=== PATIENT | female | born 1960 | race Caucasian/White ===

== ENCOUNTER 2017-07-10 22:30 | Emergency (ER) | payer BC, OTHER ==
[2017-07-10 22:45] VITALS: BP 130/79; PULSE 93; TEMP 98.2; BMI 33.6
--- NOTE | 2017-07-11 01:37 | PDOC ---
History of Present Illness - General Exam Limitations: No Limitations - History of Present Illness Initial Comments: 07/11/17 02:00 The patient is a 57 year old female, with a significant past medical history of DM, chronic back pain, hypothyroidism, scoliosis (2 rods s/p spinal fusion), neuropathy, who presents to the emergency department with, approx. 3 days of elevated blood sugar and back pain secondary to the scoliosis rods. Patient reports the rods were placed approx. 30 years ago. However, she does not receive follow up care for the scoliosis. Patient reports taking Suboxone for the back pain with minimal relief. Patient also reports feeling dehydrated as of recently. She denies recent fevers, chills, headache or dizziness. She denies recent nausea, vomit, diarrhea or constipation. She denies recent dysuria, frequency, urgency or hematuria. She denies recent chest pain or shortness of breath. Allergies: NKA Social history: Nonsmoker. Denies EtOH use and recreational drug use. Primary Care Physician: Dr. Tae Augustin <Aj Forrest - Last Filed: 07/11/17 02:35> - General History Source: Patient <Keegan Christianson - Last Filed: 07/11/17 06:04> - General Chief Complaint: Blood Sugar Problem Stated Complaint: BLOOD SUGAR PROBLEM Time Seen by Provider: 07/11/17 01:37 Past History <Aj Forrest - Last Filed: 07/11/17 02:35> - Past Medical History Anemia: No Asthma: No Cancer: No Cardiac Disorders: No CVA: No COPD: No CHF: No Dementia: No Diabetes: Yes GI Disorders: Yes (REFLUX) Disorders: No HTN: No Hypercholesterolemia: Yes (NO MEDS) Liver Disease: No Seizures: No Thyroid Disease: Yes - Surgical History Abdominal Surgery: No Appendectomy: No Cardiac Surgery: No Cholecystectomy: No Lung Surgery: Yes (LUNG NODULE SX- BENIGN) Neurologic Surgery: Yes (SPINAL FUSION) Orthopedic Surgery: No - Suicide/Smoking/Psychosocial Hx Smoking History: Never smoked Have you smoked in the past 12 months: No Number of Cigarettes Smoked Daily: 0 If you are a former smoker, when did you quit?: 5 Y AGO Hx Alcohol Use: No Drug/Substance Use Hx: No Substance Use Type: None Hx Substance Use Treatment: No <Keegan Christianson - Last Filed: 07/11/17 06:04> - Past Medical History Allergies/Adverse Reactions: Allergies Allergy/AdvReac Type Severity Reaction Status Date / Time No Known Drug Allergies Allergy Verified 06/25/16 12:49 Home Medications: Ambulatory Orders Buprenorphine/Naloxone [Suboxone 8MG/2MG -] 1 tab SL TID 11/19/13 Duloxetine HCl [Cymbalta -] 60 mg PO BID 11/19/13 Doxepin HCl 25 mg PO HS capsule 07/21/15 Linaclotide [Linzess] 290 mcg PO DAILY PRN capsule 09/08/15 Polyethylene Glycol 3350 [Miralax] 17 gm PO DAILY 09/08/15 Levothyroxine Sodium 100 mcg PO DAILY tablet 10/26/15 Insulin Aspart [Novolog] 15 unit SQ TID 06/25/16 Insulin Glargine,Hum.rec.anlog [Toujeo Solostar] 30 unit SQ AC 07/11/17 Review of Systems - Review of Systems Comments:: 07/11/17 02:00 CONSTITUTIONAL: Absent: fever, no chills, no fatigue EYES: Absent: visual changes ENT: Absent: ear pain, no sore throat CARDIOVASCULAR: Absent: chest pain, no palpitations RESPIRATORY: Absent: cough, no SOB GI: Absent: abdominal pain, no nausea, no vomiting, no constipation, no diarrhea GENITOURINARY: Absent: dysuria, no frequency, no hematuria MUSKULOSKELETAL: Present: +Back pain. Absent: no arthralgia, no myalgia SKIN: Absent: rash NEURO: Absent: headache <Forrest,Aj - Last Filed: 07/11/17 02:35> *Physical Exam - Vital Signs Last Vital Signs Temp Pulse Resp BP Pulse Ox 98.2 F 93 H 18 130/79 99 07/10/17 22:43 07/10/17 22:43 07/10/17 22:43 07/10/17 22:43 07/10/17 22:43 - Physical Exam Comments: 07/11/17 02:01 GENERAL: +Mild distress, sitting forward secondary to pain. HEENT: Normocephalic, atraumatic. PERRL, EOM intact. CARDIOVASCULAR: Normal S1, S2. Regular rate and rhythm. PULMONARY: Clear to auscultation bilaterally. ABDOMEN: Soft, obese, non-distended, non-tender. EXTREMITIES: +Early venous stasis changes left lower extremity greater than right. +Left leg more swollen than the right lower extremity. SKIN: Warm, dry. No rash NEUROLOGICAL: No focal neurological deficits. <Aj Forrest - Last Filed: 07/11/17 02:35> - Vital Signs Last Vital Signs Temp Pulse Resp BP Pulse Ox 98.2 F 93 H 18 130/79 99 07/10/17 22:43 07/10/17 22:43 07/10/17 22:43 07/10/17 22:43 07/10/17 22:43 <Keegan Christianson - Last Filed: 07/11/17 06:04> Heart Score/ECG Review #1 07/11/17 02:35 Normal Sinus Rhythm with 95 bpm. QT/QTc 368/462 ms <Aj Forrest - Last Filed: 07/11/17 02:35> ED Treatment Course - LABORATORY CBC & Chemistry Diagram: 07/11/17 01:47 07/11/17 01:52 <Aj Forrest - Last Filed: 07/11/17 02:35> - LABORATORY CBC & Chemistry Diagram: 07/11/17 01:47 07/11/17 01:52 <Keegan Christianson - Last Filed: 07/11/17 06:04> Medical Decision Making - Medical Decision Making 07/11/17 06:04 Dr. Christianson: The scribe's documentation has been prepared under my direction and personally reviewed by me in its entirery. I confirm that the note above accurately reflects all work, treatment, procedures, and medical decision making performed by me. <Keegan Christianson - Last Filed: 07/11/17 06:04> *DC/Admit/Observation/Transfer - Attestations Scribe Attestion: 07/11/17 02:04 Documentation prepared by Aj Forrest, acting as medical care administrator for Keegan Christianson MD. <Aj Forrest - Last Filed: 07/11/17 02:35> - Discharge Dispostion Admit: No <Keegan Christianson - Last Filed: 07/11/17 06:04> Diagnosis at time of Disposition: Hyperglycemia - Discharge Dispostion Disposition: HOME Condition at time of disposition: Stable - Referrals Referrals: Tae Augustin MD [Primary Care Provider] - - Patient Instructions Printed Discharge Instructions: DI for Hyperglycemia -- Adult Additional Instructions: Please go home and have breakfast. Check sugar and then treat accordingly. Follow up with Dr. Fountain by Sunday if sugar is not well controlled. Return if any problems. - Post Discharge Activity
[2017-07-11 02:00] LABS: BASO % 0.5 % (0-2.0); EOS % 3.7 % (0-4.5); HEMATOCRIT 42.7 % (32.4-45.2); HEMOGLOBIN 14.4 GM/dL (10.7-15.3); LYMPH % 46.1 % (8-40); MCH 29.2 pg (25.7-33.7); MCHC 33.7 g/dl (32.0-36.0); MEAN CELL VOLUME 86.7 fl (80-96); MEAN PLT VOLUME 7.4 fl (7.5-11.1); MONO % 5.8 % (3.8-10.2); NEUT % 43.9 % (42.8-82.8); PLATELET COUNT 261 K/MM3 (134-434); RBC 4.93 M/mm3 (3.60-5.2); RDW 12.6 % (11.6-15.6); WHITE BLOOD COUNT 7.7 K/mm3 (4.0-10.0)
[2017-07-11 02:05] LABS: VENOUS PH 7.36 (7.32-7.42)
[2017-07-11 02:06] LABS: VENOUS PC02 54.4 mmHg (38-52)
[2017-07-11 02:15] LABS: INR 1.02 (0.82-1.09); PROTHROMBIN TIME (PATIENT) 11.5 SEC (9.98-11.88)
[2017-07-11 02:25] LABS: LIPASE 64 U/L (73-393); MAGNESIUM 1.9 mg/dL (1.8-2.4)
[2017-07-11 02:26] LABS: ALBUMIN 3.7 g/dl (3.4-5.0); ANION GAP 9 (8-16); BILIRUBIN,TOTAL 0.5 mg/dL (0.2-1.0); BLOOD UREA NITROGEN 17 mg/dL (7-18); CALCIUM 9.4 mg/dL (8.5-10.1); CHLORIDE 97 mmol/L (98-107); CO2 30 mmol/L (21-32); CREATININE 0.8 mg/dL (0.55-1.02); POTASSIUM 4.4 mmol/L (3.5-5.1); SGOT/AST 15 U/L (15-37); SGPT/ALT 26 U/L (12-78); SODIUM 136 mmol/L (136-145); TOT PROT 7.3 g/dl (6.4-8.2)
[2017-07-11 02:27] LABS: ALK PHOS 65 U/L (45-117)
[2017-07-11 02:29] LABS: GLUCOSE,RANDOM 367 mg/dL (74-106)
[2017-07-11 02:31] LABS: ACETONE SERUM NEGATIVE (NEGATIVE)
[2017-07-11] MEDS ORDERED: INSULIN REGULAR HUMAN 100 UNITS/ML *VIAL IVPUSH ONE (03:13)
[2017-07-11] MEDS ORDERED: SODIUM CHLORIDE 1,000 ML IV STA (03:13)
[2017-07-11] MEDS ORDERED: INSULIN REGULAR HUMAN 100 UNITS/ML *VIAL ONE (04:16)
[2017-07-11] MEDS ORDERED: morphine CARPU-JECT 2 MG/1 ML DISP.SYRIN IVPUSH ONE (04:50)
[2017-07-11] MEDS ORDERED: ONDANSETRON 4 MG/2 ML VIAL IVPUSH STA (04:50)
[2017-07-11] MEDS ORDERED: ONDANSETRON 4 MG/2 ML VIAL ONE (04:51)
[2017-07-11] MEDS ORDERED: morphine CARPU-JECT 10 MG/1 ML DISP.SYRIN ONE (04:51)
--- NOTE | 2017-07-11 09:37 | EKG ---
Test Reason : Blood Pressure : / mmHG Vent. Rate : 095 BPM Atrial Rate : 095 BPM P-R Int : 148 ms QRS Dur : 074 ms QT Int : 368 ms P-R-T Axes : 052 012 041 degrees QTc Int : 462 ms NORMAL SINUS RHYTHM NORMAL ECG WHEN COMPARED WITH ECG OF 25-JUN-2016 14:06, NO SIGNIFICANT CHANGE WAS FOUND Confirmed by TOBY MARIA MD ([id number]) on 07/11/2017 9:36:58 AM Referred By: Confirmed By:TOBY MARIA MD
== END 2017-07-11 06:12 | disposition home or self-care (01) ==
LOC: JER 22:30
PROC: 3E033GC Introduction of Other Therapeutic Substance into Peripheral Vein, Percutaneous Approach (ICD-10-PCS; principal; 2017-07-10)
PROC: 3E033NZ Introduction of Analgesics, Hypnotics, Sedatives into Peripheral Vein, Percutaneous Approach (ICD-10-PCS; 2017-07-10)
PROC: 3E033VG Introduction of Insulin into Peripheral Vein, Percutaneous Approach (ICD-10-PCS; 2017-07-10)
DX: E11.65 Type 2 diabetes mellitus with hyperglycemia (principal); Z79.84 Long term (current) use of oral hypoglycemic drugs; M54.5 Low back pain; G89.29 Other chronic pain; E03.9 Hypothyroidism, unspecified; M41.80 Other forms of scoliosis, site unspecified
CPT/HCPCS: 36415; 80053; 80307; 82009; 82550; 82803; 82962; 83690; 83735; 84484; 85025; 85610; 93005; 93010; 99283-25